=== PATIENT | male | born 1995 | race Caucasian/White ===

== ENCOUNTER → 2021-06-15 | Outpatient (CLI) | payer OTHER ==
--- NOTE | 2021-06-15 09:38 | KCIC ---
EXAM: Lumbar spine MRI without contrast. HISTORY: Lifting injury. Pain. TECHNIQUE: Multiplanar, multisequence magnetic resonance imaging of the lumbar spine was performed wi thout contrast. COMPARISON: None. FINDINGS: There is minimal lumbar levocurvature. There is no significant listhesis. There is slight d isc desiccation at L5-S1. There is no suspicious osseous lesion. There is no acute or subacute fractu re. The conus terminates at L1. There is prominent epidural fat primarily at the lumbosacral junction . At L1-L2,, L2-L3 and L3-L4, there is no stenosis. At L4-L5, there is a left paracentral to lateral recess disc protrusion. There is effacement of the l eft lateral recess and deviation of the traversing left nerve roots. There is mild to moderate centra l canal stenosis. At L5-S1, there is prominent epidural fat resulting in moderate narrowing of the thecal sac. IMPRESSION: 1. L4-L5: Left paracentral to lateral recess disc protrusion resulting in effacement of the left late ral recess and deviation of the traversing left nerve roots and mild to moderate central canal stenos is. 2. Prominent epidural fat at the lumbosacral junction resulting in moderate narrowing of the thecal s ac. Electronically signed by: Agnieszka Irizarry MD (06/15/2021 9:36 AM) [id number]
== END ==
LOC: KCIC MRI 08:19
PROVIDERS: ATTEND Family Medicine
DX: M51.26 Other intervertebral disc displacement, lumbar region (principal); M48.07 Spinal stenosis, lumbosacral region; E65 Localized adiposity
CPT/HCPCS: 72148

== ENCOUNTER → 2021-10-09 | Outpatient (CLI) | payer OTHER ==
[~2021-10-09] MED LIST: CYCL10TA19 PO; GABA300C18 PO; OXYC-325 PO; ceFAZolin SODIUM 1 GM in IV NORMAL SALINE 1000ML BAG 1,000 ML IRR ONE
[2021-10-09 15:13] LABS: BASO % 1 % (0-3); EOS # 0.1 x10^3/uL (0.0-0.7); EOS % 2 % (0-3); HEMATOCRIT 42.5 % (39.0-53.0); HEMOGLOBIN 14.6 g/dL (13.0-17.5); LYMPH # 2.2 x10^3/uL (1.0-4.8); LYMPH % 34 % (24-48); MEAN CORPUSCULAR HEMOGLOBIN 30 pg (25-35); MEAN CORPUSCULAR HGB CONC 34 g/dL (31-37); MEAN CORPUSCULAR VOLUME 86 fL (79-100); MONO # 0.5 x10^3/uL (0.0-1.1); MONO % 8 % (0-9); NEUT # 3.5 x10^3/uL (1.8-7.7); NEUT % 55 % (31-73); PLATELET COUNT 350 x10^3/uL (140-400); RED BLOOD COUNT 4.96 x10^6/uL (4.30-5.70); RED CELL DISTRIBUTION WIDTH 14.2 % (11.5-14.5); WHITE BLOOD COUNT 6.4 x10^3/uL (4.0-11.0)
[2021-10-09 20:29] LABS: ALBUMIN 4.3 g/dL (3.4-5.0); ALBUMIN/GLOBULIN RATIO 1.2 (1.0-1.7); CALCIUM 9.1 mg/dL (8.5-10.1); GFR 90.3; POTASSIUM 4.3 mmol/L (3.5-5.1); TOTAL BILIRUBIN 0.4 mg/dL (0.2-1.0)
== END ==
LOC: SURGPAT 14:49
PROVIDERS: ATTEND Neurological Surgery
DX: U07.1 COVID-19 (principal); Z01.812 Encounter for preprocedural laboratory examination; M51.16 Intervertebral disc disorders with radiculopathy, lumbar region
CPT/HCPCS: 80053; 85025; 87641; U0003

== ENCOUNTER 2021-11-08 10:22 | Day surgery (SDC) | payer OTHER ==
[2021-10-09 15:00] VITALS: BP 145/85
[2021-11-02 14:00] VITALS: BP 145/85
--- NOTE | 2021-11-06 14:32 | HP ---
DATE OF SERVICE: 11/06/2021 ADMIT DATE: 11/08/2021 PREOP HISTORY AND PHYSICAL HISTORY OF PRESENT ILLNESS: The patient is a pleasant 26-year-old who is having difficulty with low back pain along with pain, which radiates into his left posterolateral thigh and leg. He said he had some anterior thigh pain, but that is mild and most of the pain is in the posterior thigh on the left. The pain started in 11/2020 after a fitness test. When moving furniture in May, the pain became worse. His pain is 2 out of 10 currently with Percocet. Usually, the pain is 6/10. Lifting and twisting increases his pain. Medications help. He has been taking gabapentin, Percocet, Flexeril, Tylenol and naproxen. He has had several courses of physical therapy, which he said helped him to a degree. The pain has been severe and he has been seen in the emergency room. There is no problem on the right thigh. CURRENT MEDICATIONS: Flexeril, gabapentin, naproxen, Percocet, Tylenol. PAST MEDICAL HISTORY: Denies any previous medical history. PAST SURGICAL HISTORY: Tonsillectomy in 1997. FAMILY HISTORY: Noncontributory. SOCIAL HISTORY: Employed/[employer]. . Does not smoke. Drinks alcohol 1-2 times per month. ALLERGIES: PENICILLIN. REVIEW OF SYSTEMS: A 12-point review of systems was performed and is noncontributory except that mentioned above. PHYSICAL EXAMINATION: GENERAL: Alert, pleasant, in no acute distress. HEENT: Head is normocephalic, atraumatic. SKIN: Warm and dry. MUSCULOSKELETAL: Lumbar paraspinal muscle bulk is normal, restricted range of motion of the lumbar spine, [id number] tenderness of the lower lumbar spine with palpation, normal range of motion of the lower extremities bilaterally. EXTREMITIES: No clubbing, cyanosis or edema. NEUROLOGIC: Alert and oriented x 3. Recent and remote memory are normal, strength is 5/5 in the bilateral lower extremities. Sensory was intact to light touch in the lower extremities bilaterally, positive straight leg raising on the left with buttock and posterior thigh pain relieved by Lasegue's maneuver, negative straight leg raising on the right, normal gait. IMAGING: I reviewed a lumbar MRI scan from 06/15/2021. On that study, the principal abnormalities are at L4-L5 where he has a left paracentral lateral recess disk protrusion. This effaces the left lateral recess and deviates the transversing left L5 root. There is also moderate canal stenosis at this level. ASSESSMENT AND PLAN: Sunny has a focal disk herniation at L4-L5 on the left with nerve compression and relatively severe radiculopathy. It has been present since November of 2020. He has had multiple courses of physical therapy. At this point, I feel surgery should be considered, which would include a micro decompression/microdiskectomy at L4-L5 on the left. I spoke with him about the risk of surgery and the technique. I spoke with him about the possibility of infection and injury to the nerve root. We also reviewed the technique of surgery and the expected postoperative course. He understands and would like to go ahead. CHINYERE DR: Garry TID: [id number]
[~2021-11-08] VITALS: Ht 177.8 cm; Wt 99.0 kg
[~2021-11-08 10:22] MED LIST changes: +BUPIVACAINE-EPI 0.5% 30 ML VIAL KIT. ONE; +GELATIN SPONGE SIZE 100. ONE; +HYDROmorphone 2 MG/ML INJ. IVP PRN; +IV RINGERS,LACTATED 1000ML 1,000 ML IV SCH; +KETOROLAC 60 MG/2 ML VIAL. ONE; +MORPHINE SULFATE 2 MG/ML INJ. IVP PRN; +PROCHLORPERAZINE 10 MG/2 ML VIAL. IVP PRN; +THROMBIN TOPICAL 20,000 UNIT SPRAY.SYRN KIT TP ONE; +fentaNYL PF VIAL 100 MCG/2 ML VIAL IVP PRN
[2021-11-08] MEDS ORDERED: LIDOCAINE 2% PF 5 ML VIAL. ONE (11:05)
[2021-11-08] MEDS ORDERED: SEVOFLURANE > 120 MINUTES. IH ONE (11:05)
[2021-11-08] MEDS ORDERED: PROPOFOL 10 MG/ML (20ML) VIAL. IV ONE (11:05)
[2021-11-08] MEDS ORDERED: DEXAMETHASONE SOD PHOS 4 MG/ML VIAL ONE (11:05)
[2021-11-08] MEDS ORDERED: PROPOFOL 50 ML IV ONE ×2 (11:05→11:14)
[2021-11-08] MEDS ORDERED: ONDANSETRON PF 4 MG/2 ML VIAL. ONE (11:05)
[2021-11-08] MEDS ORDERED: REMIFENTANIL 1 MG VIAL. IV ONE (11:05)
[2021-11-08] MEDS ORDERED: PHENYLEPHRINE 10 MG/ML VIAL. ONE (11:05)
[2021-11-08] MEDS ORDERED: fentaNYL PF VIAL 100 MCG/2 ML VIAL ONE ×2 (11:06→14:17)
[2021-11-08] MEDS ORDERED: MIDAZOLAM HCL/PF 2 MG/2 ML VIAL. ONE (11:06)
[2021-11-08] MEDS ORDERED: HYDROmorphone 2 MG/ML INJ. ONE (11:32)
[2021-11-08] MEDS ORDERED: DOCU-109 PO (12:10)
--- NOTE | 2021-11-08 12:11 | DISCH ---
DISCHARGE INSTRUCTIONS Condition on Discharge Condition on Discharge: Stable Activity After Discharge Activity Instructions for Disc: Resume previous activity, Activity as tolerated Other activity instructions: no driving for a week Bathing Instructions: Shower-keep dressing dry, No Tub Bath until see Lifting Instructions after Dis: No heavy lifting, No pulling or pushing, Do not lift >10 pounds Diet after Discharge Additional Diet Restrictions: resume home diet Wound Incision Care Wound/Incision Care: Ice to area for comfort Other wound/incision instructi: may remove dressing in 48 hours if dry then may shower, no soaking Contacting the after DC Call your doctor for: Concerns you may have Follow-Up Follow up with: Dr. Hanley's nurse in 2 weeks [phone] EVON HANLEY MD November 08, 2021 12:11
[2021-11-08] MEDS ORDERED: oxyCODONE/APAP 5/325 1 TAB TABLET PO ONE (13:45)
[2021-11-08] MEDS: fentaNYL PF VIAL 100 MCG/2 ML VIAL IVP PRN ×2 (14:21→14:26)
[2021-11-08 14:57] VITALS: BP 135/60
--- NOTE | 2021-11-10 06:11 | OP ---
DATE OF SURGERY: 11/08/2021 PREOPERATIVE DIAGNOSIS: Herniated lumbar disc, L4-5, left with left lumbar radiculopathy. POSTOPERATIVE DIAGNOSIS: Herniated lumbar disc, L4-5, left with left lumbar radiculopathy. OPERATION PERFORMED: Hemilaminotomy and microdiscectomy L4-5, left. SURGEON: Christo Rodarte M.D. FRONT OFFICE SUPERVISOR: LILLI Rodriguez, assisted with the exposure, the microdiscectomy as well as the closure also used for fluoroscopy, microscopy, electrophysiologic monitoring including EMG, SSEP. OPERATIVE INDICATIONS: The patient is a pleasant 26-year-old who developed severe intractable back and left leg pain, which failed conservative measures including multiple rounds of physical therapy. The pain was severe and he had been seen in the emergency room with this problem. Imaging studies were as above and I recommended lumbar microsurgery at L4-L5. I spoke about the surgery, the risks, the technique and expected postoperative course, he wished to go ahead. DESCRIPTION OF PROCEDURE: Following general endotracheal anesthesia, the patient was positioned prone on the David table. Lumbar region prepped and draped in standard fashion. SUE hose and AV impulse boots were applied for DVT prophylaxis. The microscope was draped, fluoroscopy was draped and brought in the field. Monitoring was established. Ancef 2 grams was given less than one hour prior to initiation of the surgery. Using fluoroscopic guidance, incision was made directly over the L4-L5 interspace. I dissected down through skin and subcutaneous tissue and placed a micro disc retractor, brought in the microscope and the remainder of surgery done with microscope using microscopic technique. I burred down a hemilaminotomy with a high-speed air drill. I did perform a small partial foraminotomy. I then trimmed away ligamentum flavum and exposed the dura and the exiting root. The root was very tightly compressed and had an early takeoff from the thecal sac. It was draped over the bulging disc and tethered down. I entered the axilla without any difficulty and performed discectomy in that location. This allowed me then to mobilize the root and to carry it more medially. The disc at this point, however, after the discectomy was flat and no further discectomy was warranted. There were a number of large epidural veins, which I coagulated. After the discectomy, the root resumed a more normal shape and was quite mobile. I irrigated copiously with antibiotic solution. I did use small amounts of bone wax for any bone bleeding. I explored carefully. There were no free fragments. I removed the retractor, obtained hemostasis in the muscle and then I closed the wound in layers with absorbable suture. The skin was closed with 4-0 subcuticular stitch. I felt the surgery went very well. ROBERTO DR: Hua TID: [id number] [facility]
== END 2021-11-08 15:45 | disposition home or self-care (01) ==
LOC: SURG 10:22
PROVIDERS: ATTEND Neurological Surgery
DX: M51.16 Intervertebral disc disorders with radiculopathy, lumbar region (principal); F41.9 Anxiety disorder, unspecified; Z79.899 Other long term (current) drug therapy; Z98.890 Other specified postprocedural states; Z72.89 Other problems related to lifestyle; Z88.0 Allergy status to penicillin
CPT/HCPCS: 76000; 88304; 88311; A4364; A4556; A4930; A6254; A6258; J0690; J1100; J1170; J1885; J2250; J2370; J2405; J2704; J3010; J3490; J7030; 97110-GP